=== PATIENT | female | born 1985 ===

== ENCOUNTER 2020-05-26 10:45 | Outpatient (RCR) | payer OTHER, SELFPAY ==
--- NOTE | 2020-05-23 08:49 | PC.NURSE ---
Pt called out on her first day due to menstrual cramps. Discussed having a brief reassessment next week due to her call out.
[2020-05-26 11:13] VITALS: BMI 26.6
--- NOTE | 2020-05-26 12:07 | PC.ADMIT ---
Patient is a 35 year old female who referred herself to the [facility] program d/t increase in anxiety with panic attacks and PTSD sxs. Patient reports she lost her best friend 2 months ago. She stated she suffers from, severe anxiety and insomnia and goes for days without sleeping. She stated she is withdrawn from friends d/t really bad social anxiety. Reports she hears loud music on repeat at night. Patient stated she is unsure if she is experiencing VH or if it is just her imagination as she feels she sees things and sees something coming after her which she experiences only at night. She stated she feels paranoid at night. Patient denied SI. Asked patient if she was feeling unsafe who could she contact and patient stated her boyfriend, mother or father. Patient gave verbal permission to email her a copy of her safety plan. Patient reports she is currently using Marijuana at night and sometimes uses throughout the day. Educated patient about the mental and physical effects of marijuana use and the effects of using when experiencing paranoid thoughts, AH and VH at times. Patient stated it is probably causing more harm than good and agrees not to use while in the program and plans on tapering off completely. Medication reconciled with patient and patient's pharmacy. Uses Ativan 1-2 x a week and stated she only uses a 1/2 tab as this works well. Last filled 03/18/21 for 30 tabs. Patient also stated she has been having GI issues for over a year and has an appointment with a environmental engineering assistant tomorrow to f/u.
--- NOTE | 2020-05-26 13:18 | PC.NURSE ---
Pt called and said she doesn't want to continue in the PHP program. She thanked staff and said she was grateful to have been here, and to know that PHP is an option if needed. She said she has too much on her plate and cannot fit a PHP or IOP stay into her schedule at this time.
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
== END 2020-05-26 23:55 | disposition left against medical advice (07) ==
LOC: HO.PHPA 10:45
PROVIDERS: Visit Provider Psychiatry & Neurology Psychiatry
DX: F33.1 Major depressive disorder, recurrent, moderate (principal); F41.1 Generalized anxiety disorder; F12.180 Cannabis abuse with cannabis-induced anxiety disorder
CPT/HCPCS: 90791; 90853